=== PATIENT | male | born 1935 | race Two or more races ===

== ENCOUNTER 2017-07-17 01:10 | Inpatient (IN) | payer OTHER ==
[2017-07-17] MEDS ORDERED: ACETAMINOPHEN 500 MG TAB ONE (01:34)
[2017-07-17] MEDS ORDERED: ACETAMINOPHEN 500 MG TAB PO ONE (01:35)
--- NOTE | 2017-07-17 01:37 | EDPHY ---
H & P Stated Complaint: FEVER COUGH THROAT PAIN FEW DAYS, PASSED OUT WHILE GETTING OUT OF BED Time Seen by Provider: 07/17/17 01:21 HPI/ROS: Chief Complaint: Cough, weakness, shortness of breath HPI: 81-year-old male with a history of type 2 diabetes, hyperlipidemia, presenting with 2 days of cough which has been nonproductive. Yesterday developed a high fever, general malaise and weakness. Patient had just difficulty getting out of bed and walking around. No focal weakness. No nausea or vomiting. No abdominal pain. No chest pain. Has had some mild associated shortness of breath. No recent illness. He did have a flu vaccine this year. ROS: 10 point Review of Systems is negative except as noted in the HPI. PMH: Type 2 diabetes, hyperlipidemia Social History: No smoking, occasional alcohol, no recreational drug use Family History: non-contributory Physical Exam: Gen: Awake, Alert, No Distress HEENT: Nose: no rhinorrhea Eyes: PERRLA, EOMI Mouth: Moist mucosa Neck: Supple, no JVD Chest: nontender, decreased breath sounds bilaterally, fine crackles at the right base Heart: S1, S2 normal, no murmur Abd: Soft, non-tender, no guarding Back: no CVA tenderness, no midline tenderness Ext: no edema, non-tender Skin: no rash Neuro: CN II-XII intact, Sensation grossly intact, Strength 5/5 in bilateral upper and lower extremities - Personal History Current Tetanus/Diphtheria Vaccine: Unsure Current Tetanus Diphtheria and Acellular Pertussis (TDAP): Unsure - Medical/Surgical History Hx Asthma: No Hx Chronic Respiratory Disease: No Hx Diabetes: Yes Hx Cardiac Disease: Yes Hx Renal Disease: No Hx Cirrhosis: No Hx Alcoholism: No Hx HIV/AIDS: No Hx Splenectomy or Spleen Trauma: No Other PMH: stent in leg; hyperlipidemia; t2dm; aorta anuresm, - Social History Smoking Status: Former smoker Constitutional: Initial Vital Signs Temperature (C) 39.2 C H 07/17/17 01:15 Heart Rate 127 H 07/17/17 01:15 Respiratory Rate 18 07/17/17 01:15 Blood Pressure 163/81 H 07/17/17 01:15 O2 Sat (%) 87 L 07/17/17 01:15 O2 Delivery Mode Room Air Allergies/Adverse Reactions: No Known Allergies Allergy (Unverified 07/17/17 01:19) Home Medications: Medication Instructions Recorded Metformin,, "Cholesterol Med" 05/16/09 Januvia 50 mg 05/27/15 Lisinopril 05/27/15 SIMVASTATIN 05/27/15 Medical Decision Making - Diagnostics Imaging Results: Chest x-ray shows no focal infiltrate per my interpretation. Imaging: I viewed and interpreted images myself ED Course/Re-evaluation: 81-year-old male with 2 days of upper respiratory symptoms with fever and tachycardia and hypoxemia. Lactic acid is elevated 2.3. He has been started on the sepsis pathway. Cultures have been sent. I have ordered antibiotics. Will give a fluid bolus. Case discussed with Dr. Cardenas, hospitalist. He will admit to his service for further care. I have urged ceftriaxone and azithromycin. Patient's heart rate is improving with IV fluid hydration. I suspect his lactate will clear. Chest x-ray does not show any focal infiltrate. Symptoms consistent likely with viral respiratory infection. - Data Points Laboratory Results: Laboratory Results 07/17/17 01:30 07/17/17 01:30 07/17/17 07/17/17 07/17/17 01:40 01:30 01:30 WBC RBC Hgb Hct MCV MCH MCHC RDW Plt Count MPV Neut % (Auto) Lymph % (Auto) [place] % (Auto) Eos % (Auto) Baso % (Auto) Nucleat RBC Rel Count Absolute Neuts (auto) Absolute Lymphs (auto) Absolute Monos (auto) Absolute Eos (auto) Absolute Basos (auto) Absolute Nucleated RBC Immature Gran % Immature Gran # PT 14.3 SEC SEC (12.0-15.0) INR 1.09 (0.83-1.16) APTT 31.9 SEC SEC (23.0-38.0) VBG Lactic Acid Sodium 139 mEq/L mEq/L (135-145) Potassium 4.7 mEq/L mEq/L (3.5-5.2) Chloride 100 mEq/L mEq/L (97-110) Carbon Dioxide 22 mEq/l mEq/l (22-31) Anion Gap 17 mEq/L H mEq/L (8-16) BUN 12 mg/dL mg/dL (7-23) Creatinine 0.8 mg/dL mg/dL (0.7-1.3) Estimated GFR > 60 Glucose 199 mg/dL H mg/dL (70-100) Calcium 9.5 mg/dL mg/dL (8.5-10.4) Total Bilirubin 0.5 mg/dL mg/dL (0.1-1.4) Nasal Influenza A PCR Pending Nasal Influenza B PCR Pending 07/17/17 07/17/17 01:30 01:30 WBC 5.95 10^3/uL 10^3/uL (3.80-9.50) RBC 4.53 10^6/uL 10^6/uL (4.40-6.38) Hgb 14.1 g/dL g/dL (13.7-17.5) Hct 39.7 % L % (40.0-51.0) MCV 87.6 fL fL (81.5-99.8) MCH 31.1 pg pg (27.9-34.1) MCHC 35.5 g/dL g/dL (32.4-36.7) RDW 13.1 % % (11.5-15.2) Plt Count 152 10^3/uL 10^3/uL (150-400) MPV 10.1 fL fL (8.7-11.7) Neut % (Auto) 74.6 % H % (39.3-74.2) Lymph % (Auto) 12.6 % L % (15.0-45.0) [place] % (Auto) 11.8 % % (4.5-13.0) Eos % (Auto) 0.3 % L % (0.6-7.6) Baso % (Auto) 0.5 % % (0.3-1.7) Nucleat RBC Rel Count 0.0 % % (0.0-0.2) Absolute Neuts (auto) 4.44 10^3/uL 10^3/uL (1.70-6.50) Absolute Lymphs (auto) 0.75 10^3/uL L 10^3/uL (1.00-3.00) Absolute Monos (auto) 0.70 10^3/uL 10^3/uL (0.30-0.80) Absolute Eos (auto) 0.02 10^3/uL L 10^3/uL (0.03-0.40) Absolute Basos (auto) 0.03 10^3/uL 10^3/uL (0.02-0.10) Absolute Nucleated RBC 0.00 10^3/uL 10^3/uL (0-0.01) Immature Gran % 0.2 % % (0.0-1.1) Immature Gran # 0.01 10^3/uL 10^3/uL (0.00-0.10) PT INR APTT VBG Lactic Acid 2.3 mmol/L H mmol/L (0.7-2.1) Sodium Potassium Chloride Carbon Dioxide Anion Gap BUN Creatinine Estimated GFR Glucose Calcium Total Bilirubin Nasal Influenza A PCR Nasal Influenza B PCR Medications Given: Discontinued Medications Acetaminophen (Tylenol) 1,000 mg PO EDNOW ONE Stop: 07/17/17 01:36 Last Admin: 07/17/17 01:37 Dose: 1,000 mg Sodium Chloride (Ns) 1,000 mls @ 0 mls/hr IV ONCE ONE; Wide Open PRN Reason: Protocol Stop: 07/17/17 01:39 Last Admin: 07/17/17 01:39 Dose: 1,000 mls Departure - Departure Disposition: [facility] In[facility] Acute Clinical Impression: Fever, Pneumonia Referrals: NIKUNJ NGUYEN [Primary Care Provider] - As per Instructions
[2017-07-17] MEDS ORDERED: NS 1,000 ML IV ONE (01:38)
[2017-07-17 01:46] LABS: PLATELET COUNT 152 10^3/uL (150-400)
[2017-07-17 01:58] LABS: INR 1.09 (0.83-1.16); PROTIME(PATIENT) 14.3 SEC (12.0-15.0)
[2017-07-17] MEDS ORDERED: NS 2,200 ML IV ONE (02:04)
[2017-07-17] MEDS ORDERED: cefTRIAXone 1 GM in STERILE WATER INJ 10 ML IV ONE (02:04)
[2017-07-17] MEDS ORDERED: ONDANSETRON 4 MG/2 ML VIAL IVP PRN (02:14)
[2017-07-17] MEDS ORDERED: ONDANSETRON DISINTEGRATING 4 MG TAB PO PRN (02:14)
[2017-07-17] MEDS ORDERED: AZITHROMYCIN 250 MG TAB PO ONE (02:15)
[2017-07-17] MEDS ORDERED: OSELTAMIVIR PHOSPHATE 75 MG CAP ONE (02:43)
[2017-07-17] MEDS: OSELTAMIVIR PHOSPHATE 75 MG CAP PO SCH ×3 (02:44→17:41)
[2017-07-17] MEDS ORDERED: D50W 25 GM/50 ML SYR IVP PRN (03:00)
[2017-07-17] MEDS ORDERED: D50W 25 GM/50 ML VIAL IVP PRN (03:00)
--- NOTE | 2017-07-17 03:23 | PDGENHP ---
History and Physical - Chief Complaint Cough, fever - History of Present Illness 81 yo M w/ DM presents with 2 days of cough and fever. Patient was brought in by family due to 2 days of symptoms. he describes 2 days of cough, fever, and fatigue. Family denies sick contacts. Work-up in the ED notable for sepsis per VS parameters and influenza A positive. Patient is being admitted for observation. History Information - Allergies/Home Medication List Allergies/Adverse Reactions: No Known Allergies Allergy (Unverified 07/17/17 01:19) Home Medications: Metformin,, "Cholesterol Med" 05/16/09 [Last Taken Unknown] Januvia 50 mg 05/27/15 [Last Taken Unknown] Lisinopril 05/27/15 [Last Taken Unknown] SIMVASTATIN 05/27/15 [Last Taken Unknown] I have personally reviewed and updated: family history, medical history - Past Medical History diabetes type 2 - Family History Additional family history: Asked, denies - Social History Smoking Status: Former smoker Review of Systems Review of Systems: ROS: 10pt was reviewed & negative except for what was stated in HPI & below Physical Exam Physical Exam: Temp Pulse Resp BP Pulse Ox 37.4 C 92 20 141/64 H 97 07/17/17 03:06 07/17/17 03:06 07/17/17 03:06 07/17/17 03:06 07/17/17 03:06 O2 (L/minute) 3 Constitutional: no apparent distress, not in pain Eyes: PERRL, EOMI Ears, Nose, Mouth, Throat: moist mucous membranes, no oral mucosal ulcers Cardiovascular: systolic murmur, tachycardia Respiratory: no respiratory distress, clear to auscultation Gastrointestinal: normoactive bowel sounds, soft, non-tender abdomen Skin: warm, normal color Musculoskeletal: full muscle strength, no muscle tenderness Neurologic: AAOx3, CN II-XII Intact Psychiatric: interacting appropriately, not anxious Lab Data & Imaging Review 07/17/17 01:30 07/17/17 01:30 WBC 5.95 10^3/uL (3.80-9.50) 07/17/17 01:30 RBC 4.53 10^6/uL (4.40-6.38) 07/17/17 01:30 Hgb 14.1 g/dL (13.7-17.5) 07/17/17 01:30 Hct 39.7 % (40.0-51.0) L 07/17/17 01:30 MCV 87.6 fL (81.5-99.8) 07/17/17 01:30 MCH 31.1 pg (27.9-34.1) 07/17/17 01:30 MCHC 35.5 g/dL (32.4-36.7) 07/17/17 01:30 RDW 13.1 % (11.5-15.2) 07/17/17 01:30 Plt Count 152 10^3/uL (150-400) 07/17/17 01:30 MPV 10.1 fL (8.7-11.7) 07/17/17 01:30 Neut % (Auto) 74.6 % (39.3-74.2) H 07/17/17 01:30 Lymph % (Auto) 12.6 % (15.0-45.0) L 07/17/17 01:30 [place] % (Auto) 11.8 % (4.5-13.0) 07/17/17 01:30 Eos % (Auto) 0.3 % (0.6-7.6) L 07/17/17 01:30 Baso % (Auto) 0.5 % (0.3-1.7) 07/17/17 01:30 Nucleat RBC Rel Count 0.0 % (0.0-0.2) 07/17/17 01:30 Absolute Neuts (auto) 4.44 10^3/uL (1.70-6.50) 07/17/17 01:30 Absolute Lymphs (auto) 0.75 10^3/uL (1.00-3.00) L 07/17/17 01:30 Absolute Monos (auto) 0.70 10^3/uL (0.30-0.80) 07/17/17 01:30 Absolute Eos (auto) 0.02 10^3/uL (0.03-0.40) L 07/17/17 01:30 Absolute Basos (auto) 0.03 10^3/uL (0.02-0.10) 07/17/17 01:30 Absolute Nucleated RBC 0.00 10^3/uL (0-0.01) 07/17/17 01:30 Immature Gran % 0.2 % (0.0-1.1) 07/17/17 01:30 Immature Gran # 0.01 10^3/uL (0.00-0.10) 07/17/17 01:30 PT 14.3 SEC (12.0-15.0) 07/17/17 01:30 INR 1.09 (0.83-1.16) 07/17/17 01:30 APTT 31.9 SEC (23.0-38.0) 07/17/17 01:30 VBG Lactic Acid 1.4 mmol/L (0.7-2.1) 07/17/17 02:45 Sodium 139 mEq/L (135-145) 07/17/17 01:30 Potassium 4.7 mEq/L (3.5-5.2) 07/17/17 01:30 Chloride 100 mEq/L (97-110) 07/17/17 01:30 Carbon Dioxide 22 mEq/l (22-31) 07/17/17 01:30 Anion Gap 17 mEq/L (8-16) H 07/17/17 01:30 BUN 12 mg/dL (7-23) 07/17/17 01:30 Creatinine 0.8 mg/dL (0.7-1.3) 07/17/17 01:30 Estimated GFR > 60 07/17/17 01:30 Glucose 199 mg/dL (70-100) H 07/17/17 01:30 Calcium 9.5 mg/dL (8.5-10.4) 07/17/17 01:30 Total Bilirubin 0.5 mg/dL (0.1-1.4) 07/17/17 01:30 Procalcitonin 0.20 ng/mL (0.02-0.10) H 07/17/17 01:30 Nasal Influenza A PCR FLU A DETECTED (NEGATIVE) H 07/17/17 01:40 Nasal Influenza B PCR NEGATIVE FOR FLU B (NEGATIVE) 07/17/17 01:40 Assessment & Plan Assessment: 81 yo M w/ DM presents with sepsis 2/2 influenza. Plan: 1. Sepsis 2/2 influenza A - Patient presents with 2 days of fever and cough, found to be flu A positive in ED. Sepsis criteria met per HR and fever on presentation. Given antibiotics in ED but will hold further doses noting positive flu test. - Admit for observation - Tamiflu 75 mg PO BID - Supportive care with IVF, APAP PRN 2. DM - On metformin as outpatient, will control w/ SSI while inpatient. Diet - Regular Code - Full Ppx - LMWH, low dose Dispo - Admit to observation status
[2017-07-17] MEDS: INSULIN LISPRO 100 UNIT/ML SC SCH ×3 (09:06→19:21)
[2017-07-17] MEDS: ENOXAPARIN 40 MG/0.4 ML SYR SC SCH (09:09)
[2017-07-17] MEDS: ACETAMINOPHEN 325 MG TAB PO PRN ×2 (09:10→17:40)
[2017-07-17] MEDS ORDERED: LISINOPRIL 20 MG TAB PO SCH (11:30)
[2017-07-17] MEDS: cefTRIAXone 1 GM in STERILE WATER INJ 10 ML IV SCH (11:58)
[2017-07-17] MEDS: AZITHROMYCIN IV 250 MG in D5W 250 ML IV SCH (12:04)
--- NOTE | 2017-07-17 12:49 | ASMTCMCOM ---
CM Note CM Note Notes: Pt. is a 81-year-old man admitted due to flu symptoms. 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 RN states Pt. with good family support. Anticipates independent d/c when ready. CM available should d/c POC change. Date Signed: 07/17/2017 12:48 PM Electronically Signed By:Terri Bentley LCSW
[2017-07-17] MEDS: SIMVASTATIN 40MG TABLET PO SCH (13:42)
[2017-07-17] MEDS: LISINOPRIL 20 MG TAB PO SCH (13:45)
[2017-07-17] MEDS: ASPIRIN 81 MG CHEWABLE TAB PO SCH (14:49)
--- NOTE | 2017-07-17 15:48 | HOSPPROG ---
Hospitalist Progress Note Assessment/Plan: 81 yo M w/ DM presents with sepsis 2/2 influenza. Plan: 1. Sepsis 2/2 influenza A - Patient presents with 2 days of fever and cough, found to be flu A positive in ED. Sepsis criteria met per HR and fever on presentation. Given antibiotics in ED, will cont antibiotics. - Admit for observation - Tamiflu 75 mg PO BID - Supportive care with IVF, APAP PRN 2. DM - On metformin as outpatient, will control w/ SSI while inpatient. Diet - Regular Code - Full Ppx - LMWH, low dose Dispo - Admit to observation status Subjective: Feeling weak. Tired. Objective: Vital Signs Temp Pulse Resp BP Pulse Ox 37.3 C 77 20 132/63 H 96 07/17/17 15:17 07/17/17 15:17 07/17/17 15:17 07/17/17 15:17 07/17/17 15:17 Microbiology 07/17/17 05:48 - Final Sputum, Expectorated 07/16/17 07/17/17 07/18/17 05:59 05:59 05:59 Intake Total 2200 Balance 2200 PT 14.3 SEC (12.0-15.0) 07/17/17 01:30 INR 1.09 (0.83-1.16) 07/17/17 01:30 - Physical Exam Constitutional: appears nourished, chronically ill appearing Eyes: PERRL, anicteric sclera Ears, Nose, Mouth, Throat: moist mucous membranes, hearing normal Cardiovascular: No JVD, No edema Respiratory: no respiratory distress, reduced air movement Gastrointestinal: No tenderness, No ascites Skin: warm, normal color Musculoskeletal: no joint effusions, generalized weakness Neurologic: AAOx3 Psychiatric: interacting appropriately, not anxious, not encephalopathic ICD10 Worksheet Patient Problems: Problems Problem Status Onset Fever Acute Pneumonia Acute
[2017-07-17] MEDS: metFORMIN HCL 850 MG TAB PO SCH (17:41)
[2017-07-18] MEDS: cefTRIAXone 1 GM in STERILE WATER INJ 10 ML IV SCH (08:39)
[2017-07-18] MEDS: ENOXAPARIN 40 MG/0.4 ML SYR SC SCH (08:42)
[2017-07-18] MEDS: OSELTAMIVIR PHOSPHATE 75 MG CAP PO SCH ×2 (08:44→17:52)
[2017-07-18] MEDS: metFORMIN HCL 850 MG TAB PO SCH ×2 (08:44→17:53)
[2017-07-18] MEDS: ACETAMINOPHEN 325 MG TAB PO PRN ×2 (08:45→17:52)
[2017-07-18] MEDS: AZITHROMYCIN IV 250 MG in D5W 250 ML IV SCH (08:45)
[2017-07-18] MEDS: ASPIRIN 81 MG CHEWABLE TAB PO SCH (08:47)
[2017-07-18] MEDS: INSULIN LISPRO 100 UNIT/ML SC SCH ×3 (08:48→22:59)
[2017-07-18] MEDS: SIMVASTATIN 40MG TABLET PO SCH (08:50)
[2017-07-18] MEDS ORDERED: NON-FORMULARY NEW DRUG (Simvastatin [Zocor] 40 MG) PO SCH (09:00)
--- NOTE | 2017-07-18 09:59 | PDHOMEO2F ---
Home Oxygen Face to Face Home Orders: I certify that a physician or a nurse practitioner or physician's real estate legal assistant has had a [id number] encounter with this patient on the date of this order due to the diagnosis listed, which relates to the primary reason the patient requires home oxygen. Alternative treatments have been tried, or considered, and deemed ineffective. It is anticipated that supplemental oxygen will result in improvement with treatment. Home oxygen qualifying diagnosis: PNA SpO2 on room air (%): 86 Frequency of home oxygen needed: continuous Home oxygen liters per minute: 2 Home oxygen delivery device: nasal cannula Concentrator: Yes E-tanks for mobility and back up: Yes If ordering portable O2, is the patient mobile in the home?: Yes I certify that, based on these findings, the home oxygen is medically necessary for this patient for the following length of time. Length of time home oxygen needed: 1 week
[2017-07-18] MEDS: LISINOPRIL 20 MG TAB PO SCH (11:02)
--- NOTE | 2017-07-18 12:08 | HOSPPROG ---
Hospitalist Progress Note Assessment/Plan: 81 yo M w/ DM presents with sepsis 2/2 influenza. Plan: 1. Sepsis 2/2 influenza A - Patient presents with 2 days of fever and cough, found to be flu A positive in ED. Sepsis criteria met per HR and fever on presentation. Given antibiotics in ED, will cont antibiotics. Tamiflu 75 mg PO BID Supportive care with IVF, APAP PRN 2. DM - On metformin as outpatient, will control w/ SSI while inpatient. 3.Acute Hypoxemic resp failure cont supplemental o2 4. CAP cont abx therapy Diet - Regular Code - Full Ppx - LMWH, low dose Dispo - Change to inpt status possible home in 1-2 days if improving Subjective: Feeling a bit better. Still having significant coughing. Objective: Vital Signs Temp Pulse Resp BP Pulse Ox 36.9 C 32 L 20 121/55 H 98 07/18/17 11:06 07/18/17 11:06 07/18/17 11:06 07/18/17 11:06 07/18/17 11:06 Microbiology 07/17/17 05:48 - Final Sputum, Expectorated 07/17/17 07/18/17 07/19/17 05:59 05:59 05:59 Intake Total 2200 325 Balance 2200 325 PT 14.3 SEC (12.0-15.0) 07/17/17 01:30 INR 1.09 (0.83-1.16) 07/17/17 01:30 - Physical Exam Constitutional: no apparent distress, appears nourished, not in pain Eyes: PERRL, anicteric sclera, EOMI Ears, Nose, Mouth, Throat: moist mucous membranes, hearing normal, ears appear normal Cardiovascular: regular rate and rhythym, No JVD, No edema Respiratory: no respiratory distress, no rales or rhonchi, reduced air movement Gastrointestinal: normoactive bowel sounds, No tenderness, No ascites Skin: warm, normal color, No erythema Musculoskeletal: normal joint ROM, no joint effusions, generalized weakness Neurologic: AAOx3 Psychiatric: interacting appropriately, not anxious, not encephalopathic ICD10 Worksheet Patient Problems: Problems Problem Status Onset Fever Acute Pneumonia Acute
--- NOTE | 2017-07-18 12:36 | PDMN ---
Medical Necessity Medical necessity: C/M review: Patient [place] [facility] [place] Pneumonia, community acquired: Acute and persistent sepsis secondary to influenza A, acute hypoxemic respiratory failure, 87% RA sat, community acquired pneumonia, procalcitonin 0.20, fevers, cough, 39.2 T max, requiring ongoing IV Azithramycin QD, IV Ceftriaxone QD, pulse oximetry, supplemental O2, comorbid diabetes. 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
[2017-07-19 04:26] VITALS: RESP 16; O2SAT 96
[2017-07-19 08:15] VITALS: BP 147/73; PULSE 74; TEMP 98
[2017-07-19] MEDS: INSULIN LISPRO 100 UNIT/ML SC SCH (08:55)
[2017-07-19] MEDS: AZITHROMYCIN IV 250 MG in D5W 250 ML IV SCH (08:57)
[2017-07-19] MEDS: LISINOPRIL 20 MG TAB PO SCH (08:57)
[2017-07-19] MEDS: ASPIRIN 81 MG CHEWABLE TAB PO SCH (08:57)
[2017-07-19] MEDS: ENOXAPARIN 40 MG/0.4 ML SYR SC SCH (08:57)
[2017-07-19] MEDS: OSELTAMIVIR PHOSPHATE 75 MG CAP PO SCH (08:57)
[2017-07-19] MEDS: cefTRIAXone 1 GM in STERILE WATER INJ 10 ML IV SCH (08:57)
[2017-07-19] MEDS: SIMVASTATIN 40MG TABLET PO SCH (08:58)
[2017-07-19] MEDS: metFORMIN HCL 850 MG TAB PO SCH (08:58)
--- NOTE | 2017-07-19 10:41 | PDHOMEO2F ---
Home Oxygen Face to Face Home Orders: I certify that a physician or a nurse practitioner or physician's medical staff assistant has had a [id number] encounter with this patient on the date of this order due to the diagnosis listed, which relates to the primary reason the patient requires home oxygen. Alternative treatments have been tried, or considered, and deemed ineffective. It is anticipated that supplemental oxygen will result in improvement with treatment. Home oxygen qualifying diagnosis: PNA SpO2 on room air (%): 86 Frequency of home oxygen needed: continuous Home oxygen liters per minute: 2 Home oxygen delivery device: nasal cannula Concentrator: Yes E-tanks for mobility and back up: Yes If ordering portable O2, is the patient mobile in the home?: Yes I certify that, based on these findings, the home oxygen is medically necessary for this patient for the following length of time. Length of time home oxygen needed: 1 week
--- NOTE | 2017-07-19 14:08 | ASDISCHSUM ---
Discharge Information Plan Status:Home with No Needs Medically Cleared to Leave:07/18/2017 Discharge Date:07/19/2017 12:12 PM CM D/C Disposition: ADT D/C Disposition:Home, Routine, Self-Care Projected Discharge Date:07/19/2017 12:00 AM Transportation at D/C: Discharge Delay Reason: Follow-Up Date:07/19/2017 12:00 AM Discharge Slot: Final Diagnosis: Placement Information Patient Contact Information Contact Name:JODY Relationship: Address:[address] [place] [address] Work Phone: City:[facility] Phone: State/Zip Code:[place] [address] Email: Financial Information Financial Class:HMO and PPO Plans Primary Plan Desc:[facility] CU PLAN Primary Plan Number:[id number] Secondary Plan Desc: Secondary Plan Number: Assessment Information [facility] CM Progress Note CM Note CM Note Notes: Pt. is a 81-year-old man admitted due to flu symptoms. Pt. 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 RN states Pt. with good family support. Anticipates independent d/c when ready. CM available should d/c POC change. Date Signed: 07/17/2017 12:48 PM Electronically Signed By:Terri Bentley LCSW Intervention Information
--- NOTE | 2017-07-19 17:38 | GDS ---
[f rep st] DISCHARGE SUMMARY DISCHARGE DIAGNOSES: 1. Community-acquired pneumonia. 2. Influenza. 3. Acute hypoxemic respiratory failure. 4. History of diabetes. 5. Sepsis. PHYSICAL EXAM: GENERAL: The patient is alert. VITAL SIGNS: Afebrile at 36.6, pulse is 74, respira tory rate is 16, blood pressure is 147/73, saturating 96% on 2 L, 86% on room air. I have seen and e valuated the patient on the day of discharge. HOSPITAL COURSE: The patient is a 81-year-old male who presented to the emergency room with complain ts of shortness of breath. He was evaluated and diagnosed with: 1. Influenza. During this hospitalization, he was treated with Tamiflu which he has responded well to. 2. Sepsis. This is secondary to acute infectious process and has resolved. 3. Community-acquired pneumonia. Patient has been continued on antibiotic therapy and will resume t his in the outpatient setting. 4. History of diabetes mellitus. He has been continued on his home medications at the time of dispo sition. 5. Acute hypoxemic respiratory failure. This is in the setting of influenza, as well as pneumonia. He will require supplemental oxygen at the time of disposition. DISCHARGE: The patient will be discharged home independently with his family. There are no pending studies. Followup will be with his primary care physician, Dr. Salcido, as well as receiving home s upportive oxygen. I have spent greater than 35 minutes in the care, coordination, and management of this patient's disp osition. DISCHARGE MEDICATIONS: Please refer to EMR form. He has been provided a prescription for Tamiflu, a s well as azithromycin and Levaquin. I have not initiated changes in his other previously prescribed home medications to the best of my knowledge. /[id number]/MODL
== END 2017-07-19 12:12 | disposition home or self-care (01) | DRG 871 ==
LOC: F3E 03:04 → OBSVTOIN 07-18 10:23
PROVIDERS: ADMIT Student in an Organized Health Care Education/Training Program; ATTEND Internal Medicine
DX: A41.89 Other specified sepsis (principal); J11.00 Influenza due to unidentified influenza virus with unspecified type of pneumonia; J96.01 Acute respiratory failure with hypoxia; E11.9 Type 2 diabetes mellitus without complications; I71.9 Aortic aneurysm of unspecified site, without rupture; E78.5 Hyperlipidemia, unspecified; Z95.820 Peripheral vascular angioplasty status with implants and grafts; Z87.891 Personal history of nicotine dependence
CPT/HCPCS: G0378; J0456; J0696; J1650